=== PATIENT | male | born 1985 | race African-American/Black ===

== ENCOUNTER 2024-12-23 21:32 | Emergency (ER) | payer MEDICAID, OTHER ==
[~2024-12-23] VITALS: Ht 182.9 cm; Wt 90.0 kg
[~2024-12-23 21:32] MED LIST: AMOX1TAB16 MT; POVI30SO OP
[2024-12-23 21:45] VITALS: O2SAT 99
[2024-12-23] MEDS: TETANUS, DIPHTHERIA, PERTUSSIS VAC/PF 0.5ML (>10YR OLD) IM ONE (22:33)
[2024-12-23 22:39] VITALS: TEMP 36.7
[2024-12-23 22:41] LABS: BASOPHILS % 0.5 % (0.0-2.0); EOSINOPHILS % 1.1 % (0.0-5.0); HEMATOCRIT. 29.8 % (42.0-52.0); HEMOGLOBIN. 9.8 g/dL (14.0-18.0); LYMPHOCYTES % 62.3 % (20.0-50.0); MEAN CORPUSCULAR HEMOGLOBIN 28.4 pg (28.0-32.0); MEAN CORPUSCULAR HGB CONC 32.8 g/dL (31.0-37.0); MEAN CORPUSCULAR VOLUME 86.5 fL (80.0-94.0); MEAN PLATELET VOLUME 6.4 fl (7.4-10.4); MONOCYTES % 7.5 % (2.0-8.0); NEUTROPHILS % 28.6 % (40.0-76.0); PLATELET 226 x1000/uL (130-400); RED BLOOD CELL COUNT 3.44 mill/uL (4.7-6.1); WHITE BLOOD COUNT 4.4 x1000/uL (4.5-11.0)
[2024-12-23] MEDS: CEFAZOLIN 1000MG PREMIX 50 ML IV ONE (22:46)
[2024-12-23 22:50] LABS: CARBON DIOXIDE 18 mEq/L (21-32); CHLORIDE 120 mEq/L (98-107); SODIUM 148 mEq/L (136-145)
[2024-12-23 22:53] LABS: PROTHROMBIN TIME 10.9 sec (9.6-11.0)
[2024-12-23 22:56] LABS: ETHANOL BLOOD < 10 mg/dL (<10); GLUCOSE 120 mg/dL (70-105); UREA NITROGEN BLOOD 14 mg/dL (9-23)
[2024-12-23 22:57] LABS: CALCIUM 5.9 mg/dL (8.7-10.4); POTASSIUM 2.6 mEq/L (3.5-5.1)
[2024-12-23 22:58] LABS: ALANINE AMINOTRANSFERASE 9 IU/L (10-49); ALBUMIN 2.3 g/dL (3.2-4.8); ASPARTATE AMINOTRANSFERASE 15 IU/L (<34); BILIRUBIN DIRECT 0.1 mg/dL (<=3.0); BILIRUBIN TOTAL 0.3 mg/dL (0.1-1.0)
[2024-12-23 22:59] LABS: PROTEIN TOTAL 4.3 g/dL (6.0-8.3)
[2024-12-24] MEDS ORDERED: CALCIUM GLUCONATE 1GM PREMIX 50 ML IV NR
[2024-12-24] MEDS ORDERED: POTASSIUM CHLORIDE 20MEQ TABLET SR PO NR
[2024-12-24] MEDS ORDERED: KCL 20MEQ/100ML PREMIX 100 ML IV NR
[2024-12-24 00:10] VITALS: O2SAT 100
[2024-12-24 00:17] VITALS: BP 140/92; PULSE 107; RESP 21
[2024-12-24] MEDS: MORPHINE SULFATE 4 MG/ML INJ (FOR IV/IM USE) IV NR (00:17)
== END 2024-12-24 00:28 | disposition short-term general hospital (02) ==
LOC: ER 21:32
DX: R58 Hemorrhage, not elsewhere classified (principal); F12.90 Cannabis use, unspecified, uncomplicated; F15.90 Other stimulant use, unspecified, uncomplicated; Z79.899 Other long term (current) drug therapy
CPT/HCPCS: 80076; 80048; 80320; 85025; 85610; 86850; 86900; 86901; 36415; 73600; 90715; 90471; 96365; 99291; 96375; J0690; Z7610 ×3; J2270; A4606; J0610; G0480

== ENCOUNTER 2025-07-26 18:21 | Emergency (ER) | payer MEDICAID, OTHER ==
[~2025-07-26] VITALS: Ht 177.8 cm; Wt 77.0 kg
[2025-07-26 18:26] VITALS: BP 129/85; PULSE 77; RESP 16; TEMP 98.4; O2SAT 99
[2025-07-26] MEDS: IBUPROFEN 600MG TABLET PO ONE (20:02)
[2025-07-26] MEDS ORDERED: IBUP-1455 MT (22:52)
== END 2025-07-26 23:20 ==
LOC: ER 18:21
DX: S92.502A Displaced unspecified fracture of left lesser toe(s), initial encounter for closed fracture (principal); M20.11 Hallux valgus (acquired), right foot; X58.XXXA Exposure to other specified factors, initial encounter; Y93.89 Activity, other specified; Y92.89 Other specified places as the place of occurrence of the external cause; Y99.8 Other external cause status
CPT/HCPCS: 73610; 73630; 99284; Z7610